=== PATIENT | male | born 1990 ===

== ENCOUNTER 2018-10-01 10:11 | Inpatient (IN) | payer SELFPAY ==
[2018-10-01 10:12] VITALS: BMI 24.3
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
[2018-10-01 10:50] LABS: EOS # 0.4 K/uL (0.0-0.7); EOS % 3.2 % (0.0-4.0); HEMOGLOBIN 15.1 g/dL (12.0-18.0); LYMPH % 27.3 % (20.0-40.0)
[2018-10-01 10:53] LABS: SQUAMOUS EPITHIAL < 1 /hpf (0-5); URINE BILIRUBIN NEGATIVE (NEGATIVE); URINE BLOOD NEGATIVE (NEGATIVE); URINE CLARITY Clear (Clear); URINE COLOR Amber (YELLOW); URINE GLUCOSE (UA) NORMAL (Normal); URINE LEUKOCYTE ESTERASE NEG Leu/uL (Negative); URINE PROTEIN NEGATIVE (NEGATIVE); URINE UROBILINOGEN NORMAL mg/dL (0.2-1.0)
[2018-10-01 10:56] LABS: BASO % 0.3 % (0.0-2.0); LYMPH # 3.2 K/uL (1.0-4.3); MEAN CELL VOLUME 87.1 fL (80.0-94.0); MEAN CORPUSCULAR HEMOGLOBIN 29.5 pg (27.0-31.0); MEAN CORPUSCULAR HGB CONC 33.8 g/dL (33.0-37.0); MEAN PLATELET VOLUME 7.6 fL (7.2-11.7); MONO % 8.5 % (0.0-10.0); NEUT % 60.7 % (50.0-75.0); RBC 5.12 Mil/uL (4.40-5.90); RED CELL DISTRIBUTION WIDTH 13.7 % (11.5-14.5); WHITE BLOOD COUNT 11.6 K/uL (4.8-10.8)
[2018-10-01 11:04] LABS: ALB/GLOB RATIO 1.3 (1.0-2.1); ALBUMIN 4.6 g/dL (3.5-5.0); ALT/SGPT 35 U/L (21-72); AST/SGOT 30 U/L (17-59); BLOOD UREA NITROGEN 18 mg/dL (9-20); CALCIUM 8.9 mg/dl (8.6-10.4); GFR NON-AFRICAN AMERICAN > 60
[2018-10-01 11:16] LABS: BARBITURATES, UR NEGATIVE (NEGATIVE); BENZODIAZEPINES, UR NEGATIVE (NEGATIVE); PHENCYCLIDINE, UR NEGATIVE (NEGATIVE)
[2018-10-01 11:17] LABS: OPIATES, UR POSITIVE (NEGATIVE)
--- NOTE | 2018-10-01 14:43 | PCM.BM ---
<Amalia Hudson - Last Filed: 10/01/18 14:42> Treatment Plan Problems - Problems identified on initial assessmt potential for opiate withdrawals Date Initiated: 10/01/18 Assessment reference: NA Status: Active Treatment assets and liabiliti Patient Assests: adapts well, cooperative, motivated, ADL independent, negotiates basic needs Patient Liabilities: substance abuse - Milieu Protocol Maintain good personal hygiene: daily Encourage regular showers, daily Remind patient to perform daily oral care, daily Assist patient to perform ADL's Conduct patient checks and document Observation sheet: Q15 minutes Maintain personal safety: every shift Educate patient to report safety concerns to staff, every shift Monitor environment for contraband/sharps Medication safety: Monitor for expected outcome, potential side effects: every shift, Assess barriers to learning: every shift, Assess readiness for medication education: every shift <Willis Hitchcock - Last Filed: 10/02/18 22:31> - Diagnosis (1) Opioid use disorder, severe, dependence Status: Acute Interventions: 10/02/18 22:31 * Assess 7x/week regarding severity of withdrawal * Educate regarding risks, benefits, side effects and alternatives of medications * Use Motivational Interviewing for abstinence * Use CBT for relapse prevention * Medication management for withdrawal symptoms * Encourage medication assisted treatment (2) Cannabis use disorder, mild, abuse Status: Acute Interventions: 10/02/18 22:32 * Assess 7x/week regarding severity of withdrawal * Educate regarding risks, benefits, side effects and alternatives of medications * Use Motivational Interviewing for abstinence * Use CBT for relapse prevention * Medication management for withdrawal symptoms * Encourage medication assisted treatment <Sherron Almazan - Last Filed: 10/04/18 14:54> Family Contact Family involvement: Famliy/SO not involved - Goals for Treatment Patient goals for treatment: Complete detox and transition to a long-term rehab. Discharge/Continuing Care - Education Needs Education Needs: Patient Medication, Patient Diagnosis/Disease Process, Patient Coping Skills, Patient Anger Management skills, Patient Placement options, Patient Community resources - Discharge Discharge Criteria: No longer exhibiting s/s of withdrawal, Reduction of target symptoms Discharge to:: Substance Abuse Rehab - Treatment Team Participation Patient/Family/SO Statement: 10/04/18 14:54 "I [facility] go to the [facility] from here..." Discussed with Family/SO: No Was Patient/Family/SO present at Treatment Team Meeting: Yes
[2018-10-01] MEDS ORDERED: Magnesium Hydroxide Susp 30 ml UD PO PRN (15:18)
[2018-10-01] MEDS ORDERED: Aluminum Hydroxide/Magnesium Hydroxide Susp (30 mL) PO PRN (15:18)
--- NOTE | 2018-10-02 22:36 | PCM.PSYCH ---
Initial Psychiatric Evaluation - Initial Psychiatric Evaluation Type of Admission: Voluntary Legal Status: Capacity Chief Complaint (in patient's own words): I need help for my substance use. History of Present Illness and Precipitating Events: Patient is a 28 years old, single, currently unemployed, male, with no previous psychiatric history was admitted due to withdrawing from heroine and cannabis. Opioid: Patient started using heroin 1 year ago. Before that patient was using Percocet for 1 year, was buying from street. 1 year ago patient switched to heroin from Percocet and was using 2-4 bundle of heroin daily. Snorting. Last used yesterday. Denied any previous detox or rehabs. Cannabis: Started using cannabis at 16 years of age. In the past he was using daily but now once a month. Last used one day before. Cigarette smoking: Was smoking 10 cigarettes daily and is requesting for nicotine patch. Patient was born in [place], has 12 grade of education. 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 Lives alone. His height is 6 feet 4 inches and weight is 200 pounds. Current Medications: Active Medications Generic Name Dose Route Start Last Admin Trade Name Freq PRN Reason Stop Dose Admin Al Hydrox/Mg Hydrox/Simethicone 30 ml 10/01/18 15:18 Maalox 30 Ml PO TID PRN Indigestion / Heartburn Clonidine HCl 0.1 mg 10/01/18 15:18 10/01/18 17:21 Catapres PO 0.1 mg Q4H PRN Administration Symptoms of alcohol withdrawl Dicyclomine HCl 10 mg 10/01/18 15:18 10/01/18 17:21 Bentyl PO 10 mg Q6 PRN Administration Muscle spasm Gabapentin 300 mg 10/01/18 18:00 10/02/18 17:05 Neurontin PO 300 mg BID KYLE Administration Hydroxyzine HCl 50 mg 10/01/18 15:21 10/02/18 21:24 Atarax PO 50 mg QID PRN Administration Anxiety Ibuprofen 600 mg 10/01/18 18:15 Motrin Tab PO Q6 PRN Pain, moderate (4-7) Loperamide HCl 2 mg 10/01/18 15:18 10/01/18 17:21 Imodium PO 2 mg Q8 PRN Administration Diarrhea Magnesium Hydroxide 30 ml 10/01/18 15:18 Milk Of Magnesia PO 10/03/18 18:01 BID PRN Constipation Methadone HCl 20 mg 10/02/18 10:00 10/02/18 10:09 Methadone PO 10/06/18 09:59 20 mg Q24H KYLE Administration Taper Nicotine 1 patch 10/02/18 10:00 10/02/18 09:58 Nicoderm Cq TD 1 patch DAILY KYLE Administration Ondansetron HCl 4 mg 10/01/18 15:18 10/01/18 17:21 Zofran Tab PO 4 mg Q8 PRN Administration Nausea/Vomiting Trazodone HCl 50 mg 10/01/18 15:18 10/02/18 21:24 Desyrel PO 50 mg HS PRN Administration Insomnia Past Psychiatric History - Past Psychiatric History Previous Treatment History: None History of Abuse: None reported History of ETOH/Drug Use: See HPI History of Family Illness: None reported Pertinent Medical Hx (Current Medical&Sleep Prob, Allergies): Allergies Allergy/AdvReac Type Severity Reaction Status Date / Time acetaminophen [From Tylenol] Allergy RASH Verified 07/21/18 00:23 Albuterol HFA [Ventolin HFA 90 mcg/actuation (8 g)] 2 puff IH Q4H #1 puff 07/24/18 Albuterol HFA [Ventolin HFA 90 mcg/actuation (8 g)] 1 puff IH BID PRN #1 unit Asthma Review of Systems - Psychiatric Psychiatric: As Per HPI, Anxiety Mental Status Examination - Personal Presentation Personal Presentation: Looks stated age - Affect Affect: Other (Appropriate) - Motor Activity Motor Activity: Calm - Reliability in Providing Information Reliability in Providing Information: Fair - Speech Speech: Organized - Mood Mood: Anxious - Formal Thought Process Formal Thought Process: No Impairment - Hallucinations/Delusions Hallucinations: Other (None reported) Delusions: Other - Obsessions/Compulsions Obsessions: None Compulsions: None - Cognitive Functions Orientation: Person, Place, Situation, Time Sensorium: Alert Attention/Concentration: Attentive Abstract Thinking: Archbold Estimate of Intelligence: Average Judgement: Intact, as evidence by: Insight regarding need for hospitalization Memory: Recent intact, as evidence by: Ability to recall events of the day, Re mote intact, as evidenced by: Ability to recall historical events - Risk Risk: Withdrawal, Diminished functioning - Strength & Assets Inventory Strength & Assets Inventory: Cooperative - Limitations Limitations: Living alone DSM 5 DX - DSM 5 DSM 5 Diagnosis: Opioid withdrawal Opioid use disorder severe Cannabis use disorder mild - Recommended/Plan of Treatment Treatment Recommendations and Plan of Treatment: Patient education. Supportive therapy. CBT for relapse prevention. MS for abstinence. Will start methadone taper for opioid withdrawal symptoms. Other PRN medications. Patient wants to go to a long-term care for follow-up care after discharge from the hospital. Projected ELOS: 4-5 days - Smoking Cessation Smoking Cessation Initiated: Yes
--- NOTE | 2018-10-03 16:12 | PCM.PYCHPN ---
Psychiatric Progress Note - Psychiatric Progress Note Patient seen today, length of contact: 15 minutes Patient Chief Complaint: I'm feeling little better with the treatment. Problems Identified/Issues Discussed: Patient seen, chart reviewed, case discussed with the staff. Issues related to illness and treatment were discussed with the patient and staff. Reported compliant with treatment with no adverse effect. Calm and cooperative. Reported feeling little better. Still having withdrawal symptoms including shaking, sweating, body aches and headache. Awake, alert and oriented x3. Mood reported as anxious. Affect appropriate. Memory intact. Aftercare discussed with the patient. Denied any delusions, auditory or visual hallucinations, suicidal ideations or homicidal ideations at the time of evaluation. Medical Problems: Asthma Diagnostic Results: Reviewed DSM 5 Symptoms Update: Some improvement with treatment Medication Change: No Medical Record Reviewed: Yes Mental Status Examination - Cognitive Function Orientation: Person, Place, Situation, Time Memory: Intact Attention: WNL Concentration: WNL Association: [facility] Fund of Knowledge: [facility] Decription of patient's judgement and insights: Fair - Mood Mood: Anxious (Much less than before) - Affect Affect: Other (Appropriate) - Speech Speech: Appropriate - Formal Thought Process Formal Thought Process: No Impairment Psychotic Thoughts and Behaviors: None - Suicidal Ideation Suicidal Ideation: No - Homicidal Ideation Homicidal Ideation: No Goal/Treatment Plan - Goal/Treatment Plan Need for Continued Stay: Remain at risks for inpatient hospitalization, Discharge may exacerbated symptoms, Severe functional impairment Progress Toward Problem(s) and Goals/Treatment Plan: Patient education. Supportive therapy. CBT for relapse prevention. CO for abstinence. Continue treatment as before Patient wants to go to a long-term care for follow-up care after discharge from the hospital. Estimated Date of D/C: 10/05/18 - Smoking Cessation Smoking Cessation Initiated: Yes
--- NOTE | 2018-10-04 15:53 | PCM.PYCHPN ---
Psychiatric Progress Note - Psychiatric Progress Note Patient seen today, length of contact: 15 minutes Patient Chief Complaint: I'm feeling better with the treatment. Problems Identified/Issues Discussed: Patient seen, chart reviewed, case discussed with the staff. Issues related to illness and treatment were discussed with the patient and staff. Reported compliant with treatment with no adverse effect. Calm and cooperative. Reported feeling better. Awake, alert and oriented x3. Mood reported as anxious. Affect appropriate. Memory intact. Aftercare discussed with the patient. Denied any delusions, auditory or visual hallucinations, suicidal ideations or homicidal ideations at the time of evaluation. Medical Problems: Asthma Diagnostic Results: Reviewed DSM 5 Symptoms Update: Improving with treatment Medication Change: No Medical Record Reviewed: Yes Mental Status Examination - Cognitive Function Orientation: Person, Place, Situation, Time Memory: Intact Attention: WNL Concentration: WNL Association: [facility] Fund of Knowledge: [facility] Decription of patient's judgement and insights: Fair - Mood Mood: Anxious (Much less than before) - Affect Affect: Other (Appropriate) - Speech Speech: Appropriate - Formal Thought Process Formal Thought Process: No Impairment Psychotic Thoughts and Behaviors: None - Suicidal Ideation Suicidal Ideation: No - Homicidal Ideation Homicidal Ideation: No Goal/Treatment Plan - Goal/Treatment Plan Need for Continued Stay: Remain at risks for inpatient hospitalization, Discharge may exacerbated symptoms, Severe functional impairment Progress Toward Problem(s) and Goals/Treatment Plan: Patient education. Supportive therapy. CBT for relapse prevention. NV for abstinence. Continue treatment as before Patient wants to go to [facility] for follow-up care after discharge from the hospital. Estimated Date of D/C: 10/06/18 - Smoking Cessation Smoking Cessation Initiated: Yes
--- NOTE | 2018-10-05 18:50 | PCM.PYCHPN ---
Psychiatric Progress Note - Psychiatric Progress Note Patient seen today, length of contact: 15 minutes Patient Chief Complaint: I'm feeling better. Problems Identified/Issues Discussed: Patient seen, chart reviewed, case discussed with the staff. Issues related to illness and treatment were discussed with the patient and staff. Reported compliant with treatment with no adverse effect. Calm and cooperative. Reported feeling better. Awake, alert and oriented x 3. Mood reported as okay. Affect appropriate. Memory intact. Aftercare discussed with the patient. Denied any delusions, auditory or visual hallucinations, suicidal ideations or homicidal ideations at the time of evaluation. Medical Problems: Asthma Diagnostic Results: Reviewed DSM 5 Symptoms Update: Improving with treatment. Medication Change: No Medical Record Reviewed: Yes Mental Status Examination - Cognitive Function Orientation: Person, Place, Situation, Time Memory: Intact Attention: WNL Concentration: WNL Association: [facility]N Fund of Knowledge: [facility] Decription of patient's judgement and insights: Fair - Mood Mood: Neutral - Affect Affect: Other (Appropriate) - Speech Speech: Appropriate - Formal Thought Process Formal Thought Process: No Impairment Psychotic Thoughts and Behaviors: None - Suicidal Ideation Suicidal Ideation: No - Homicidal Ideation Homicidal Ideation: No Goal/Treatment Plan - Goal/Treatment Plan Need for Continued Stay: Remain at risks for inpatient hospitalization, Discharge may exacerbated symptoms, Severe functional impairment Progress Toward Problem(s) and Goals/Treatment Plan: Patient education. Supportive therapy. CBT for relapse prevention. ND for abstinence. Continue treatment as before Patient will go to [facility] for follow-up care after discharge from the hospital. Estimated Date of D/C: 10/06/18 - Smoking Cessation Smoking Cessation Initiated: Yes
[2018-10-06 09:49] VITALS: BP 111/69; PULSE 76; RESP 18; TEMP 97.4; O2SAT 100
--- NOTE | 2018-10-06 10:23 | PCM.PYCHDC ---
Mental Status Examination - Mental Status Examination Orientation: Person, Place, Situation, Time Memory: Intact Mood: Neutral Affect: Other (Appropriate) Speech: Appropriate Attention: WNL Concentration: WNL Association: WNL Fund of Knowledge: WNL Formal Thought Process: No Impairment Description of patient's judgement and insight: Fair Psychotic Thoughts and Behaviors: None Suicidal Ideation: No Current Homicidal Ideation?: No Discharge Summary - Discharge Note Reason for Hospitalization: Opioid use disorder severe. Cannabis use disorder mild Laboratory Data: Reviewed Consultations:: List each consultation separately and include: 1. Reason for request. 2. Findings. 3. Follow-up Summary of Hospital Course include:: 1. Description of specific treatment plan utilized for patients during their course of treatmen. 2. Summarize the time- course for resolution of acute symptoms and/or regressed behaviors. 3. Describe issues identified and worked on during hospitalization. 4. Describe medication utilized. 5. Describe medical problems identified and treated. 6. Reassessment of suicide risk Summary of Hospital Course: Patient is a 28 years old, single, currently unemployed, male, with no previous psychiatric history was admitted due to withdrawing from heroine and cannabis. Opioid: Patient started using heroin 1 year ago. Before that patient was using Percocet for 1 year, was buying from street. 1 year ago patient switched to heroin from Percocet and was using 2-4 bundle of heroin daily. Snorting. Last used yesterday. Denied any previous detox or rehabs. Cannabis: Started using cannabis at 16 years of age. In the past he was using daily but now once a month. Last used one day before. Cigarette smoking: Was smoking 10 cigarettes daily and is requesting for nicotine patch. Patient was born in [place], has 12 grade of education. 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 Lives alone. His height is 6 feet 4 inches and weight is 200 pounds. During his stay in the hospital patient was started on methadone taper for opioid withdrawal symptoms. Patient was started on other PRN medications. Patient was attending groups and other activities on the unit. With above treatment patient started feeling better. Today patient had no withdrawal symptoms and was ready for discharge from the hospital. At the time of evaluation and discharge, patient was awake, alert and oriented x3, had no delusions, no auditory or visual hallucinations, no suicidal ideations or homicidal ideation. Patient was discharged in a stable condition. - Diagnosis (1) Opioid use disorder, severe, dependence Status: Acute (2) Cannabis use disorder, mild, abuse Status: Acute - Final Diagnosis (DSM 5) Condition upon Discharge: STABLE Disposition: HOME/ ROUTINE Follow-up Treatment Plan: Patient will go to [facility] for follow-up care after discharge from the hospital. Prescriptions/Medication Reconciliation: Gabapentin [Neurontin] 300 mg PO BID #60 cap traZODone [Desyrel] 50 mg PO HS PRN #30 tab PRN Reason: Insomnia - Smoking Cessation Smoking Cessation Medication prescribed: No - Antipsychotic Medications Pt discharged on 2 or more routine antipsychotic medications: No
== END 2018-10-06 10:50 | disposition home or self-care (01) | DRG 895 ==
LOC: C.ER 10:11 → C.7D 13:05
PROC: HZ2ZZZZ Detoxification Services for Substance Abuse Treatment (ICD-10-PCS; principal; 2018-10-01)
PROC: HZ46ZZZ Group Counseling for Substance Abuse Treatment, Psychoeducation (ICD-10-PCS; 2018-10-01)
PROC: HZ80ZZZ Medication Management for Substance Abuse Treatment, Nicotine Replacement (ICD-10-PCS; 2018-10-01)
PROC: HZ59ZZZ Individual Psychotherapy for Substance Abuse Treatment, Supportive (ICD-10-PCS; 2018-10-01)
DX: F11.23 Opioid dependence with withdrawal (principal); F12.10 Cannabis abuse, uncomplicated; F17.210 Nicotine dependence, cigarettes, uncomplicated; J45.909 Unspecified asthma, uncomplicated

== ENCOUNTER 2018-11-10 00:53 | Emergency (ER) | payer SELFPAY ==
[2018-11-10 00:54] VITALS: BMI 24.3
--- NOTE | 2018-11-10 01:33 | C.PDOC ---
History Of Present Illness The patient presents to the ED requesting heroin detox. He denies suicidal/homicidal ideation and offers no other complaints at this time. Time Seen by Provider: 11/10/18 01:32 Chief Complaint (Nursing): Substance Abuse History Per: Patient History/Exam Limitations: no limitations Onset/Duration Of Symptoms: Hrs Current Symptoms Are (Timing): Still Present Suicide/Self Injury Attempted (Context): None Modifying Factor(s): Other (heroin ) Severity: None Pain Scale Rating Of: 0 Associated Symptoms: Suicidal Plan. denies: Suicidal Thoughts Involuntary Hold By: None Recent travel outside of the [place]: No Additional History Per: Patient Past Medical History Reviewed: Historical Data, Nursing Documentation, Vital Signs Vital Signs: Last Vital Signs Temp 97.3 F L 11/10/18 01:00 Pulse 90 11/10/18 01:00 Resp 16 11/10/18 01:00 BP 126/84 11/10/18 01:00 Pulse Ox 96 11/10/18 01:00 - Medical History PMH: Asthma (childhood) Denies: Diabetes, Hepatitis, HIV, HTN, Chronic Kidney Disease, Seizures, Sexually Transmitted Disease Surgical History: No Surg Hx - [facility] DETOXIFICATION SERVICES FOR SUBSTANCE ABUSE TREATMENT (10/01/18) GROUP PHARMACY ASSISTANT FOR SUBSTANCE ABUSE TREATMENT, PSYCHOEDUCATION (10/01/18) INDIV PSYCHOTHERAPY FOR SUBSTANCE ABUSE TREATMENT, SUPPORT (10/01/18) MEDS MGMT FOR SUBSTANCE ABUSE TREATMENT, NICOTINE REPLACE (10/01/18) Family History: States: Unknown Family Hx - Social History Hx Alcohol Use: No Hx Substance Use: Yes - Immunization History Hx Tetanus Toxoid Vaccination: No Hx Influenza Vaccination: No Hx Pneumococcal Vaccination: No Review Of Systems Constitutional: Negative for: Fever, Chills Cardiovascular: Negative for: Chest Pain, Palpitations Respiratory: Negative for: Cough, Shortness of Breath Gastrointestinal: Negative for: Nausea, Vomiting Skin: Negative for: Rash, Jaundice, Bruising Psych: Positive for: Other (heroin detox ). Negative for: Suicidal ideation Physical Exam - Physical Exam Appears: Non-toxic, No Acute Distress Skin: Warm, Dry Head: Normacephalic Eye(s): bilateral: Normal Inspection Oral Mucosa: Moist Neck: Supple Chest: Symmetrical, No Deformity Cardiovascular: Rhythm Regular Respiratory: No Accessory Muscle Use Extremity: Normal ROM Neurological/Psych: Oriented x3 Gait: Steady ED Course And Treatment O2 Sat by Pulse Oximetry: 96 (on RA ) Pulse Ox Interpretation: Normal Progress Note: Patient is informed that there are no detox bed available at this time. Patient is requesting a place to sleep for the night. Reevaluation Time: 05:21 Reassessment Condition: Improved Disposition Counseled Patient/Family Regarding: Studies Performed, Diagnosis, Need For Followup - Disposition Referrals: [facility] [Outside] Disposition: HOME/ ROUTINE Disposition Time: 01:33 Condition: FAIR Instructions: Polysubstance Abuse (DC) Forms: [facility] (Armenian) - Clinical Impression Clinical Impression: Drug abuse
[2018-11-10 06:01] VITALS: BP 113/73; PULSE 69; RESP 18; TEMP 97.6; O2SAT 98
== END 2018-11-10 06:53 | disposition home or self-care (01) ==
LOC: C.ER 00:53
DX: F19.10 Other psychoactive substance abuse, uncomplicated (principal)

== ENCOUNTER 2018-11-10 08:47 | Inpatient (IN) | payer MEDICAID ==
[2018-11-10 08:47] VITALS: BMI 24.3
--- NOTE | 2018-11-10 09:07 | C.PDOC ---
History Of Present Illness 28 year old female presents to the ED complaining of suicidal ideation. Status post discharge at 0530 this morning where he requested heroin detox but there were no beds available. Per old records, patient reported no SI/SA and wanted a place to sleep only. CO SUICIDAL IDEATION. S/P DC @ 530, REQUESTED HEROIN DETOX BUT NO BEDS AVAIL. PER OLD RECORD, PT REPORTED NO SI/SA AND WANTED PLACE TO SLEEP ONLY. Time Seen by Provider: 11/10/18 09:04 Chief Complaint (Nursing): Psychiatric Evaluation History Per: Patient History/Exam Limitations: no limitations Onset/Duration Of Symptoms: Hrs Current Symptoms Are (Timing): Still Present Suicide/Self Injury Attempted (Context): None Modifying Factor(s): None Additional History Per: Prior Records Past Medical History Reviewed: Historical Data, Nursing Documentation, Vital Signs Vital Signs: Last Vital Signs Temp 98.7 F 11/10/18 08:51 Pulse 66 11/10/18 08:51 Resp 18 11/10/18 08:51 BP 129/82 11/10/18 08:51 Pulse Ox 100 11/10/18 08:51 - Medical History PMH: Asthma (childhood) Denies: Diabetes, Hepatitis, HIV, HTN, Chronic Kidney Disease, Seizures, Sexually Transmitted Disease Surgical History: No Surg Hx - [facility] DETOXIFICATION SERVICES FOR SUBSTANCE ABUSE TREATMENT (10/01/18) GROUP FALAFEL CART COOK FOR SUBSTANCE ABUSE TREATMENT, PSYCHOEDUCATION (10/01/18) INDIV PSYCHOTHERAPY FOR SUBSTANCE ABUSE TREATMENT, SUPPORT (10/01/18) MEDS MGMT FOR SUBSTANCE ABUSE TREATMENT, NICOTINE REPLACE (10/01/18) Family History: States: No Known Family Hx - Social History Hx Tobacco Use: No Hx Alcohol Use: No Hx Substance Use: Yes - Immunization History Hx Tetanus Toxoid Vaccination: No Hx Influenza Vaccination: No Hx Pneumococcal Vaccination: No Review Of Systems Except As Marked, All Systems Reviewed And Found Negative. Constitutional: Negative for: Fever, Chills Psych: Positive for: Suicidal ideation Physical Exam - Physical Exam Appears: Non-toxic, No Acute Distress Skin: Warm, Dry Head: Normacephalic Eye(s): bilateral: Normal Inspection Nose: Normal Oral Mucosa: Moist Neck: Supple Chest: Symmetrical Cardiovascular: Rhythm Regular Respiratory: No Rales, No Rhonchi, No Wheezing, Other (NARD) Neurological/Psych: Oriented x3, Normal Speech Gait: Steady ED Course And Treatment - Laboratory Results Result Diagrams: 11/10/18 10:06 11/10/18 10:06 O2 Sat by Pulse Oximetry: 100 (RA) Pulse Ox Interpretation: Normal Progress - Re-Evaluation Re-evaluation Note: 11/10/18 09:06 D/W CRISIS WILL EVAL IN ER 11/10/18 09:28 SP CRISIS EVAL. STATES UPON BEING ADVISED OF DETOX BED AVAIL, PT NOW NO LONGER SUICIDAL AND WISHES DETOX ADMISSION INSTEAD. 11/10/18 11:00 MED CLEAR FOR DETOX. CRISIS NOTIFIED - Data Reviewed Data Reviewed: Lab, Old records Medical Decision Making Medical Decision Making: Plan - Bloodwork - UA - Crisis Eval Disposition - Disposition Disposition: HOSPITALIZED Disposition Time: 11:24 Condition: STABLE Forms: [facility] (Telugu) - POA Present On Arrival: None - Clinical Impression Clinical Impression: Opiate dependence - Scribe Statement The provider has reviewed the documentation as recorded by the Scribe Holly Vázquez All medical record entries made by the Scribe were at my direction and personally dictated by me. I have reviewed the chart and agree that the record accurately reflects my personal performance of the history, physical exam, me dical decision making, and the department course for this patient. I have also personally directed, reviewed, and agree with the discharge instructions and disposition.
[2018-11-10 10:14] LABS: BASO # 0.1 K/uL (0.0-0.2); EOS # 0.6 K/uL (0.0-0.7); EOS % 5.5 % (0.0-4.0); HEMOGLOBIN 15.1 g/dL (12.0-18.0); LYMPH # 1.8 K/uL (1.0-4.3); LYMPH % 17.1 % (20.0-40.0); MEAN CELL VOLUME 88.3 fL (80.0-94.0); MEAN CORPUSCULAR HEMOGLOBIN 30.2 pg (27.0-31.0); MEAN CORPUSCULAR HGB CONC 34.2 g/dL (33.0-37.0); MEAN PLATELET VOLUME 8.1 fL (7.2-11.7); MONO # 0.6 K/uL (0.0-0.8); NEUT # 7.4 K/uL (1.8-7.0); NEUT % 70.4 % (50.0-75.0); NRBC % 0.1 % (0.0-2.0); RBC 5.01 Mil/uL (4.40-5.90); WHITE BLOOD COUNT 10.5 K/uL (4.8-10.8)
[2018-11-10 10:19] LABS: URINE BILIRUBIN NEGATIVE (NEGATIVE); URINE BLOOD NEGATIVE (NEGATIVE); URINE CLARITY Clear (Clear); URINE COLOR Yellow (YELLOW); URINE GLUCOSE (UA) NORMAL (Normal); URINE LEUKOCYTE ESTERASE NEG Leu/uL (Negative); URINE PROTEIN NEGATIVE (NEGATIVE); URINE UROBILINOGEN NORMAL mg/dL (0.2-1.0)
[2018-11-10 10:28] LABS: ALB/GLOB RATIO 1.5 (1.0-2.1); ALBUMIN 4.5 g/dL (3.5-5.0); ALT/SGPT 22 U/L (21-72); AST/SGOT 31 U/L (17-59); BLOOD UREA NITROGEN 12 mg/dL (9-20); CALCIUM 9.5 mg/dl (8.6-10.4); GFR NON-AFRICAN AMERICAN > 60
[2018-11-10 10:43] LABS: BARBITURATES, UR NEGATIVE (NEGATIVE); BENZODIAZEPINES, UR NEGATIVE (NEGATIVE); PHENCYCLIDINE, UR NEGATIVE (NEGATIVE)
[2018-11-10 10:59] LABS: OPIATES, UR POSITIVE (NEGATIVE)
--- NOTE | 2018-11-10 12:53 | PCM.BM ---
<Amalia Hudson - Last Filed: 11/10/18 12:51> Treatment Plan Problems - Problems identified on initial assessmt denial Date Initiated: 11/10/18 Assessment reference: NA defensive coping Date Initiated: 11/10/18 Assessment reference: NA Status: Active abnormal vital signs Date Initiated: 11/10/18 Assessment reference: NA Status: Active low motivation to change Date Initiated: 11/10/18 Assessment reference: NA Status: Active Treatment assets and liabiliti Patient Assests: adapts well, cooperative, motivated, ADL independent, negotiates basic needs Patient Liabilities: poor support system, substance abuse, other - Milieu Protocol Maintain good personal hygiene: daily Encourage regular showers, daily Remind patient to perform daily oral care, daily Assist patient to perform ADL's Conduct patient checks and document Observation sheet: Q15 minutes Maintain personal safety: every shift Educate patient to report safety concerns to staff, every shift Monitor environment for contraband/sharps Medication safety: Monitor for expected outcome, potential side effects: every shift, Assess barriers to learning: every shift, Assess readiness for medication education: every shift <Sherron Almazan - Last Filed: 11/12/18 13:04> Family Contact Family involvement: Family/SO is involved Family contact name: mom Family contacted how many times per week?: 2 - Goals for Treatment Patient goals for treatment: Complete detox and apply for long-term inpatient treatment program. Discharge/Continuing Care - Education Needs Education Needs: Family Diagnosis/Disease Process, Family Community resources, Patient Medication, Patient Diagnosis/Disease Process, Patient Coping Skills, Patient Anger Management skills, Patient Placement options, Patient Community resources - Discharge Discharge Criteria: No longer exhibiting s/s of withdrawal, Reduction of target symptoms Discharge to:: Substance Abuse Rehab - Treatment Team Participation Patient/Family/SO Statement: 11/12/18 13:03 "I wanna go to the [facility] if I can..." Discussed with Family/SO: No Was Patient/Family/SO present at Treatment Team Meeting: Yes
[2018-11-10] MEDS ORDERED: Albuterol HFA 90 mcg/actuation (8 g) INH PRN (13:00)
[2018-11-10] MEDS ORDERED: Aluminum Hydroxide/Magnesium Hydroxide Susp (30 mL) PO PRN (21:52)
--- NOTE | 2018-11-11 10:20 | PCM.PSYCH ---
Initial Psychiatric Evaluation - Initial Psychiatric Evaluation Type of Admission: Voluntary Legal Status: Capacity Chief Complaint (in patient's own words): I need to get off Heroin. History of Present Illness and Precipitating Events: Patient is a 28 year old male that is single, currently unemployed, and is homeless. Patient went to the [facility] [place] ED on 11/10 for depression and opioid use and was later admitted for heroin detox. On examination patient appeared anxious but was open to questioning. Patient was previously here at the [facility] detox unit in October for heroin detox but ended up relapsing 3 days after he was discharged. Patient has been using 15 bags of heroin daily, primarily by means of sniffing, for the past year. Prior to this, he was using Percocet that he had been buying off the streets for about a year, as per chart review. He has never overdosed in the past. Additionally patient smokes marijuana and smokes approximately 10 cigarettes daily. Patient was never been part of any rehabilitation program. PMHx: Asthma PsychHx: Depression, still is but not suicidal anymore FMHx: Denies Medications: Ventolin, Current Medications: Active Medications Generic Name Dose Route Start Last Admin Trade Name Freq PRN Reason Stop Dose Admin Al Hydrox/Mg Hydrox/Simethicone 30 ml 11/10/18 21:52 Maalox 30 Ml PO TID PRN Indigestion / Heartburn Albuterol 1 puff 11/10/18 13:00 Ventolin Hfa 90 Mcg/Actuation (8 G) INH RQ4 PRN Shortness of Breath Clonidine HCl 0.1 mg 11/10/18 21:52 Catapres PO Q4 PRN COWS Score More or Equal to 5 Hydroxyzine HCl 50 mg 11/10/18 21:58 11/11/18 00:46 Atarax PO 50 mg Q6H PRN Administration Anxiety Ibuprofen 600 mg 11/10/18 21:58 Motrin Tab PO Q6H PRN Pain, moderate (4-7) Loperamide HCl 2 mg 11/10/18 21:52 Imodium PO Q8 PRN Diarrhea Methadone HCl 15 mg 11/11/18 10:00 11/11/18 09:30 Methadone PO 11/14/18 09:59 15 mg Q24H KYLE Administration Taper Nicotine 1 patch 11/10/18 12:45 11/11/18 09:30 Nicoderm Cq TD 1 patch DAILY KYLE Administration Ondansetron HCl 4 mg 11/10/18 21:52 Zofran Tab PO Q8 PRN Nausea/Vomiting Trazodone HCl 50 mg 11/10/18 19:58 11/10/18 21:18 Desyrel PO 50 mg HS PRN Administration Insomnia Past Psychiatric History - Past Psychiatric History Previous Treatment History: Intensive Outpatient Pertinent Medical Hx (Current Medical&Sleep Prob, Allergies): Allergies Allergy/AdvReac Type Severity Reaction Status Date / Time acetaminophen [From Tylenol] Allergy RASH Verified 11/10/18 01:03 Albuterol HFA [Ventolin HFA 90 mcg/actuation (8 g)] 2 puff IH Q4H #1 puff 07/24/18 Review of Systems - Psychiatric Psychiatric: Abnormal Sleep Pattern, Anxiety, Behavioral Changes, Depression, Difficulty Concentrating, Mood Swings. absent: Auditory Hallucinations, Homicidal Ideation, Paranoia, Suicidal Ideation, Visual Hallucinations Mental Status Examination - Personal Presentation Personal Presentation: Looks stated age - Affect Affect: Broad - Motor Activity Motor Activity: Calm - Reliability in Providing Information Reliability in Providing Information: Good - Speech Speech: Organized - Mood Mood: Anxious - Formal Thought Process Formal Thought Process: No Impairment - Obsessions/Compulsions Obsessions: No Compulsions: No - Cognitive Functions Orientation: Person, Place, Situation, Time Sensorium: Alert Attention/Concentration: Attentive Abstract Thinking: [place] Estimate of Intelligence: Average Judgement: Intact, as evidence by: Insight regarding need for hospitalization Memory: Recent intact, as evidence by: Ability to recall events of the day, Remote intact, as evidenced by: Abilit to recall sig. life events - Risk Risk: Withdrawal, Diminished functioning - Strength & Assets Inventory Strength & Assets Inventory: Cooperative - Limitations Limitations: Other DSM 5 DX - DSM 5 DSM 5 Diagnosis: Opioid withdrawal Opioid use disorder, severe Major depressive d/o - recurrent, severe Cannabis use d/o - severe - Recommended/Plan of Treatment Treatment Recommendations and Plan of Treatment: Taper with methadone Gabapentin for augmentation if needed Remeron for depression As needed medications Patient is instructed to use ventolin Q4 for symptoms of SOB All risks, benefits and alternatives of the meds discussed, and the pt agreed and understood. Attend groups and activities Supportive therapy and psychoeducation CT for abstinence CBT for relapse prevention Encourage MAT Refer to rehab or IOP, and self-help groups Teach healthy lifestyle methods, i.e. diet, exercise, meditation Smoking cessation with CT Nicotine patch if needed 34 minutes Projected ELOS: 4-5 days Prognosis: Good with treatment.
[2018-11-14 04:39] VITALS: RESP 18
[2018-11-14 09:34] VITALS: BP 125/78; PULSE 74; TEMP 97.4; O2SAT 100
--- NOTE | 2018-11-14 10:50 | PCM.PYCHDC ---
Mental Status Examination - Mental Status Examination Orientation: Person Discharge Summary - Discharge Note Consultations:: List each consultation separately and include: 1. Reason for request. 2. Findings. 3. Follow-up Summary of Hospital Course include:: 1. Description of specific treatment plan utilized for patients during their course of treatmen. 2. Summarize the time- course for resolution of acute symptoms and/or regressed behaviors. 3. Describe issues identified and worked on during hospitalization. 4. Describe medication utilized. 5. Describe medical problems identified and treated. 6. Reassessment of suicide risk Summary of Hospital Course: Patient is a 28 year old male that is single, currently unemployed, and is homeless. Patient went to the [facility] ED on 11/10 for depression and opioid use and was later admitted for heroin detox. On examination patient appeared anxious but was open to questioning. Patient was previously here at the [facility] detox unit in October for heroin detox but ended up relapsing 3 days after he was discharged. Patient has been using 15 bags of heroin daily, primarily by means of sniffing, for the past year. Prior to this, he was using Percocet that he had been buying off the streets for about a year, as per chart review. He has never overdosed in the past. Additionally patient smokes marijuana and smokes approximately 10 cigarettes daily. Patient was never been part of any rehabilitation program. PMHx: Asthma PsychHx: Depression, still is but not suicidal anymore FMHx: Denies Medications: Ventolin, He went to [facility] in [place] - Final Diagnosis (DSM 5) Condition upon Discharge: STABLE Disposition: HOME/ ROUTINE Follow-up Treatment Plan: Taper with methadone Gabapentin for augmentation if needed Remeron for depression As needed medications Patient is instructed to use ventolin Q4 for symptoms of SOB All risks, benefits and alternatives of the meds discussed, and the pt agreed and understood. Attend groups and activities Supportive therapy and psychoeducation ND for abstinence CBT for relapse prevention Encourage MAT Refer to rehab or IOP, and self-help groups Teach healthy lifestyle methods, i.e. diet, exercise, meditation Smoking cessation with ND Nicotine patch if needed 34 minutes Prescriptions/Medication Reconciliation: Mirtazapine [Remeron] 15 mg PO HS #30 tab traZODone [Desyrel] 50 mg PO HS PRN #30 tab PRN Reason: Insomnia
== END 2018-11-14 11:35 | disposition home or self-care (01) | DRG 751 ==
LOC: C.ER 08:47 → C.7D 11:24
PROVIDERS: ADMIT Psychiatry & Neurology Psychiatry; ATTEND Psychiatry & Neurology Psychiatry
PROC: GZ56ZZZ Individual Psychotherapy, Supportive (ICD-10-PCS; principal; 2018-11-10)
DX: F33.2 Major depressive disorder, recurrent severe without psychotic features (principal); R45.851 Suicidal ideations; F11.23 Opioid dependence with withdrawal; F12.90 Cannabis use, unspecified, uncomplicated; J45.909 Unspecified asthma, uncomplicated; Z59.0 Homelessness